=== PATIENT | male | born 1955 ===

== ENCOUNTER 2021-07-21 06:26 | Inpatient (IN) ==
[~2021-07-21 06:26] MED LIST: Buffered Lidocaine 1% SYRIN 1 ml INTRADERM ONE; Dexamethasone IV 4 MG/ML VIAL 1 ml VIAL IV SLOW PU ONE; Famotidine IV 10 MG/ML 2 ml VIAL (20 mg) IV ONE; Lactated Ringers 1000 ml BAG 1,000 ML IV SCH
[2021-07-21] MEDS ORDERED: Buffered Lidocaine 1% SYRIN 1 ml INTRADERM ONE (06:49)
[2021-07-21] MEDS ORDERED: ceFAZolin 2 GM in NS PREMIX 2 GM/100 ML BAG IVPB ONE (06:49)
[2021-07-21] MEDS ORDERED: Phenylephrine 40 mcg/mL 10mL (400mcg) SYRINGE ONE (07:04)
[2021-07-21] MEDS ORDERED: Propofol 10 mg/ml 100 ML BTL 100 ML ONE (07:09)
[2021-07-21] MEDS ORDERED: Propofol 10 mg/ml 100 ML BTL 0 ML ONE (07:09)
[2021-07-21] MEDS ORDERED: Vancomycin 1,000 MG VIAL ONE (07:10)
[2021-07-21] MEDS ORDERED: Bupivacaine 0.5% W/EPI SDV 10 ML VIAL INJ ONE (07:10)
[2021-07-21] MEDS ORDERED: Dexamethasone IV 4 MG/ML VIAL 1 ml VIAL ONE ×2 (07:12→08:26)
[2021-07-21] MEDS ORDERED: Famotidine IV 10 MG/ML 2 ml VIAL (20 mg) ONE (07:12)
[2021-07-21] MEDS ORDERED: Midazolam 5 mg/5 ml VIAL 1 mg/ml 5 ml VIAL (5 mg) ONE (07:15)
[2021-07-21] MEDS ORDERED: Ondansetron 4 mg VIAL 2 MG/ML 2 ml VIAL ONE (08:26)
[2021-07-21] MEDS ORDERED: Ondansetron 4 mg VIAL 2 MG/ML 2 ml VIAL IV PRN ×2 (09:59→10:00)
[2021-07-21] MEDS ORDERED: diPHENhydraMINE IV 50 MG/ML 1 ml VIAL (BENADRYL) IV PRN (10:00)
[2021-07-21] MEDS ORDERED: diPHENhydraMINE 25 mg TAB PO PRN (10:00)
[2021-07-21] MEDS ORDERED: Ondansetron ODT 4 mg TAB 4 MG TAB PO PRN (10:00)
[2021-07-21] MEDS ORDERED: Lactulose 30 ml UDC PO PRN (10:00)
[2021-07-21] MEDS ORDERED: Magnesium Hydroxide LIQ 30 ML UDC PO PRN (10:00)
[2021-07-21] MEDS ORDERED: Morphine 2 MG/ML SYRINGE IV PRN (10:00)
[2021-07-21] MEDS: Lactated Ringers 1000 ml BAG 1,000 ML IV SCH ×2 (11:24→23:14)
[2021-07-21] MEDS: ceFAZolin 1 GM ADVAN 1 GM in NS 0.9% 50 ML 50 ML IVPB SCH ×2 (16:14→23:55)
[2021-07-21] MEDS: Magnesium Hydroxide LIQ 30 ML UDC PO SCH (21:53)
[2021-07-22 07:25] LABS: Hematocrit 39 % (42-52); Hemoglobin 13.4 g/dL (14.0-18.0); Mean Platelet Volume 8.2 fL (7.4-10.4); Platelet Count 209 10^3/uL (150-450)
[2021-07-22 07:40] LABS: Calcium 9.6 mg/dL (8.6-10.3); Potassium 3.9 mmol/L (3.5-5.0)
[2021-07-22] MEDS: ceFAZolin 1 GM ADVAN 1 GM in NS 0.9% 50 ML 50 ML IVPB SCH (08:03)
[2021-07-22] MEDS: Magnesium Hydroxide LIQ 30 ML UDC PO SCH (08:03)
[2021-07-22 08:59] VITALS: BP 133/88
[2021-07-22] MEDS ORDERED: Vitamin THERAPEUTIC TAB PO SCH (09:00)
[2021-07-22] MEDS ORDERED: Flu vaccine *QUAD* 2021-22* 0.5 ML SYRINGE IM ONE (09:00)
== END 2021-07-22 12:07 | disposition home or self-care (01) | DRG 470 ==
LOC: SSU 06:26 → OR 06:26
PROVIDERS: ADMIT Orthopaedic Surgery; ATTEND Orthopaedic Surgery